=== PATIENT | male | born 1975 | race Caucasian/White ===

== ENCOUNTER 2016-06-25 23:29 | Emergency (ER) | payer OTHER ==
[~2016-06-25] VITALS: Ht 177.8 cm; Wt 137.1 kg
[~2016-06-25 23:29] MED LIST: ADVIL MIGRAINE200 MG PO; AMLODIPINE BESY10 MG PO; ATIVAN0.5 MG PO; ATIVAN1 MG PO; BENADRYL50 MG PO; CIPROFLOXACIN500 M1 PO; CLEOCIN300 MG PO; CLINDAMYCIN HC300 MG PO; DESYREL 150 MG150 MG PO; DOXYCYCLINE MO100 M1 PO; ERGOCALCIF50000 UNIT PO; FIORICET 50-301 EACH PO; FLONASE16 G1 BOTH NARES; FLORASTOR250 MG PO; FUROSEMIDE40 MG PO; GABAPENTIN300 MG PO; GLIPIZIDE10 MG PO; GLUCOPHAGE1000 MG PO; HUMALOG100 UNIT/1 SC; HUMULIN 70100 UNIT/2 SC; HUMULIN N100 UNITS/ SC; HUMULIN R100 UNITS/ SC; HYDROCHLOROTH12.5 M3 PO; HYDROCHLOROTHIA25 MG PO; HYDROCODON-ACE1 EAC7 PO; HYDROCODON-ACE1 EAC9 PO; LABETALOL HCL200 MG PO; LANTUS 10100 UNITS/ SC; LANTUS 3 M100 UNITS1 SC; LASIX40 MG PO; LEVAQUIN750 MG PO; LEVEMIR FL100 UNITS/ SC; LEVEMIR100 UNIT/2; LOPRESSOR25 MG PO; LOPRESSOR50 MG PO; LORAZEPAM0.5 MG PO; METOLAZONE5 MG PO; METOPROLOL TART25 MG PO; NEURONTIN300 MG PO; NIFEDIPINE ER60 MG PO; NORCO 5/3251 TABLET PO; NORVASC10 MG PO; NORVASC5 MG PO; NOVOLIN,HU100 UNITS/ SC; NOVOLIN,HU100 UNITS1 SC; NOVOLOG 10100 UNITS/ SC; NOVOLOG MI100 UNIT/4 SC; NOVOLOG MI100 UNIT/M PO; NOVOLOG PE100 UNITS/ SC; Norvasc PO; OMEPRAZOLE40 M1 PO; PAROXETINE HCL20 MG PO; PRILOSEC40 MG PO; RAMIPRIL1.25 MG PO; RENVELA800 MG PO; ROCEPHIN 2 GM VI2 GM IM; SERTRALINE HCL100 MG PO; SILVADENE20 GM TP; SILVER SULFADIA50 GM TP; TRAMADOL HCL50 MG PO; TRAZODONE HCL150 MG PO; TYLENOL EXTRA500 MG PO; Tessalon Perle PO; ULTRAM50 MG PO; VIBRAMYCIN100 MG PO; VITAMIN D1000 UNIT PO; VITAMIN D250000 UNIT PO; Vicodin,Norco 5/325 PO; XANAX0.5 MG PO; ZESTRIL10 MG PO; ZOLOFT100 MG PO; ZYVOX600 MG PO; ZYVOX600 MG/300 IV; Zestril,Prinivil PO; Zoloft PO
[2016-06-25 23:38] VITALS: BP 177/79
[2016-06-26 00:45] LABS: HEMATOCRIT 34.7 % (38.0-50.0); MCH 29.4 PG (29.0-34.0); MCHC 32.3 G/DL (30.0-36.0); MCV 91.1 FL (86-99); MEAN PLAT.VOLUME 10.1 uM^3 (9.0-12.4); PLATELET COUNT 211 K/uL (156-360); RBC DIS.WIDTH-CV 16.9 % (11.8-14.6); RBC DIS.WIDTH-SD 54.7 % (39-53); RED BLOOD COUNT 3.81 M/uL (4.00-5.50); WHITE BLOOD COUNT 15.9 K/uL (4.1-10.2)
[2016-06-26 00:59] LABS: CHLORIDE 96 mEq/L (99-109); POTASSIUM 5.2 mEq/L (3.7-5.4); SODIUM 134 mEq/L (136-147)
[2016-06-26 01:01] LABS: GLUCOSE 152 mg/dL (70-99)
[2016-06-26 01:02] LABS: ANION GAP 16 MEQ/L (2-14)
[2016-06-26 01:05] LABS: GFR ESTIMATE (CALCULATED) 6 mL/min/
[2016-06-26 01:06] LABS: UREA NITROGEN (BUN) 48 mg/dL (9-23)
== END 2016-06-26 03:19 | disposition left against medical advice (07) ==
LOC: EME 23:29
DX: R05 Cough (principal); R11.10 Vomiting, unspecified; R50.9 Fever, unspecified; R52 Pain, unspecified; R06.89 Other abnormalities of breathing; Z53.21 Procedure and treatment not carried out due to patient leaving prior to being seen by health care provider
CPT/HCPCS: 71020; 80048; 85027; 87502; 93005

== ENCOUNTER 2016-06-30 17:22 | Inpatient (IN) | payer OTHER ==
[~2016-06-30] VITALS: Ht 180.3 cm; Wt 134.7 kg
[2016-06-30 18:16] LABS: HEMATOCRIT 30.4 % (38.0-50.0); MCH 29.6 PG (29.0-34.0); MCHC 32.6 G/DL (30.0-36.0); MEAN PLAT.VOLUME 9.7 uM^3 (9.0-12.4); PLATELET COUNT 265 K/uL (156-360); RBC DIS.WIDTH-CV 16.3 % (11.8-14.6); RBC DIS.WIDTH-SD 52.6 % (39-53); RED BLOOD COUNT 3.34 M/uL (4.00-5.50); WHITE BLOOD COUNT 14.1 K/uL (4.1-10.2)
[2016-06-30 18:21] LABS: EOSINOPHIL (%) 1.4 % (0-5); EOSINOPHIL COUNT 0.2 K/uL (0-0.3); IMMATURE GRANULOCYTE (%) 0.5 % (0.0-0.7); IMMATURE GRANULOCYTE COUNT 0.7 K/uL; LYMPHOCYTE COUNT 0.8 K/uL (1.0-2.8); MONOCYTE (%) 6.5 % (3-12); MONOCYTE COUNT 0.9 K/uL (0-0.8); NEUTROPHIL (%) 85.8 % (45-76); NEUTROPHIL COUNT 12.1 K/uL (1.8-6.4)
[2016-06-30 18:24] LABS: CHLORIDE 95 mEq/L (99-109); POTASSIUM 4.2 mEq/L (3.7-5.4); SODIUM 140 mEq/L (136-147)
[2016-06-30 18:26] LABS: GLUCOSE 125 mg/dL (70-99)
[2016-06-30 18:27] LABS: ANION GAP 14 MEQ/L (2-14)
[2016-06-30 18:31] LABS: UREA NITROGEN (BUN) 24 mg/dL (9-23)
[2016-06-30 18:32] LABS: GFR ESTIMATE (CALCULATED) 13 mL/min/
[2016-06-30 20:29] LABS: INFLUENZA A VIRAL ANTIGEN NEGATIVE; INFLUENZA B VIRAL ANTIGEN NEGATIVE
[2016-06-30] MEDS ORDERED: PROCARDIA XL90 MG PO (20:57)
[2016-06-30] MEDS ORDERED: DOXYCYCLINE HY100 M3 PO (21:04)
[2016-06-30] MEDS ORDERED: CALPHRON667 MG PO (21:07)
[2016-06-30] MEDS ORDERED: VENTOLIN HFA18 GM IH (21:08)
[2016-07-01 01:09] VITALS: BP 137/65
[2016-07-01 02:43] LABS: POINT-OF-CARE METER ID UU13113700
[2016-07-01 04:37] VITALS: BP 142/66
[2016-07-01 07:30] LABS: POINT-OF-CARE METER ID UU13113700
[2016-07-01 07:48] VITALS: BP 165/88
[2016-07-01 12:08] VITALS: BP 146/70
[2016-07-01 13:13] LABS: POINT-OF-CARE METER ID UU13113700
[2016-07-01 17:35] LABS: POINT-OF-CARE METER ID UU13113700
[2016-07-01 20:13] LABS: POINT-OF-CARE METER ID UU13113700
[2016-07-01 21:09] VITALS: BP 163/83
[2016-07-02] VITALS: BP 161/78
[2016-07-02 05:41] LABS: HEMATOCRIT 28.3 % (38.0-50.0); MCH 28.8 PG (29.0-34.0); MCHC 31.8 G/DL (30.0-36.0); MCV 90.7 FL (86-99); PLATELET COUNT 250 K/uL (156-360); RBC DIS.WIDTH-CV 16.5 % (11.8-14.6); RBC DIS.WIDTH-SD 54.4 % (39-53); RED BLOOD COUNT 3.12 M/uL (4.00-5.50); WHITE BLOOD COUNT 11.1 K/uL (4.1-10.2)
[2016-07-02 06:10] LABS: ANION GAP 12 MEQ/L (2-14); CHLORIDE 94 MEQ/L (99-109); GFR ESTIMATE (CALCULATED) 8 mL/min/; POTASSIUM 4.1 MEQ/L (3.7-5.4); SAMPLE HEMOLYSIS CHECK 0; SAMPLE ICTERIC CHECK 0; SAMPLE LIPEMIA CHECK 0; SODIUM 135 MEQ/L (136-147)
[2016-07-02 06:24] LABS: GLUCOSE 89 mg/dL (70-99); UREA NITROGEN (BUN) 50 mg/dL (9-23)
[2016-07-02 06:25] LABS: EOSINOPHIL (%) 2.1 % (0-5); EOSINOPHIL COUNT 0.2 K/uL (0-0.3); IMMATURE GRANULOCYTE COUNT 0.1 K/uL; MONOCYTE (%) 7.4 % (3-12); MONOCYTE COUNT 0.8 K/uL (0-0.8); NEUTROPHIL (%) 80.7 % (45-76)
[2016-07-02 07:51] LABS: POINT-OF-CARE METER ID UU13113831
[2016-07-02 08:38] VITALS: BP 153/83
[2016-07-02 16:03] VITALS: BP 144/70
[2016-07-02 17:42] LABS: POINT-OF-CARE METER ID UU13113700
[2016-07-02 20:10] VITALS: BP 141/76
[2016-07-03 00:02] VITALS: BP 159/78
[2016-07-03 04:05] VITALS: BP 118/61
[2016-07-03 08:45] VITALS: BP 123/71
[2016-07-03 12:32] LABS: POINT-OF-CARE METER ID UU13113700
[2016-07-03 12:43] VITALS: BP 135/81
[2016-07-03] MEDS ORDERED: ZYVOX600 MG/300 IV (14:49)
[2016-07-03] MEDS ORDERED: DOXYCYCLINE HY100 M3 PO (14:49)
[2016-07-03 16:45] VITALS: BP 139/68
== END 2016-07-03 17:31 | disposition home or self-care (01) | DRG 871 ==
LOC: EME 17:22 → 5WEST 07-01 00:06 → EDOF 07-01 00:06 → 5WEST 07-01 00:49
PROVIDERS: Emergency Medicine; Hospitalist
PROC: 5A1D00Z (ICD-10-PCS; principal; 2016-07-02)
DX: A41.9 Sepsis, unspecified organism (principal); L03.115 Cellulitis of right lower limb; N18.6 End stage renal disease; I12.0 Hypertensive chronic kidney disease with stage 5 chronic kidney disease or end stage renal disease; E11.22 Type 2 diabetes mellitus with diabetic chronic kidney disease; E66.01 Morbid (severe) obesity due to excess calories; Z68.41 Body mass index [BMI] 40.0-44.9, adult; L02.415 Cutaneous abscess of right lower limb; B95.62 Methicillin resistant Staphylococcus aureus infection as the cause of diseases classified elsewhere; E11.621 Type 2 diabetes mellitus with foot ulcer; L97.522 Non-pressure chronic ulcer of other part of left foot with fat layer exposed; E11.42 Type 2 diabetes mellitus with diabetic polyneuropathy; G89.4 Chronic pain syndrome; M54.9 Dorsalgia, unspecified; H54.8 Legal blindness, as defined in USA; E78.5 Hyperlipidemia, unspecified; Z99.2 Dependence on renal dialysis; Z91.19 Patient's noncompliance with other medical treatment and regimen; Z79.4 Long term (current) use of insulin; Z88.0 Allergy status to penicillin; Z88.1 Allergy status to other antibiotic agents
CPT/HCPCS: 73718; 80048; 81003; 82948; 83605; 85025; 87040; 87502; 94640; 99202; 99281; 99285; J1644; J1815

== ENCOUNTER → 2016-09-24 | Outpatient (CLI) | payer OTHER ==
[~2016-09-24] MED LIST changes: +CALPHRON667 MG PO; +DOXYCYCLINE HY100 M3 PO; +PROCARDIA XL90 MG PO; +VENTOLIN HFA18 GM IH
== END | disposition home or self-care (01) ==
LOC: RAD 16:14
DX: M51.36 Other intervertebral disc degeneration, lumbar region (principal); M16.6 Other bilateral secondary osteoarthritis of hip
CPT/HCPCS: 72110; 73522

== ENCOUNTER 2016-12-04 17:56 | Emergency (ER) | payer OTHER ==
[~2016-12-04] VITALS: Ht 180.3 cm; Wt 131.2 kg
[2016-12-04 19:15] LABS: EOSINOPHIL (%) 0.7 % (0-5); EOSINOPHIL COUNT 0.1 K/uL (0-0.3); HEMATOCRIT 37.2 % (38.0-50.0); IMMATURE GRANULOCYTE (%) 0.7 % (0.0-0.7); IMMATURE GRANULOCYTE COUNT 0.1 K/uL; INSTRUMENT ABS NEUTROPHIL CT 11.2 K/uL; MCH 30.4 PG (29.0-34.0); MCHC 33.1 G/DL (30.0-36.0); MCV 91.9 FL (86-99); MEAN PLAT.VOLUME 9.3 uM^3 (9.0-12.4); MONOCYTE (%) 6.9 % (3-12); MONOCYTE COUNT 0.9 K/uL (0-0.8); NEUTROPHIL (%) 84.3 % (45-76); NEUTROPHIL COUNT 11.2 K/uL (1.8-6.4); PLATELET COUNT 196 K/uL (156-360); RBC DIS.WIDTH-CV 16.2 % (11.8-14.6); RBC DIS.WIDTH-SD 54.9 % (39-53); RED BLOOD COUNT 4.05 M/uL (4.00-5.50); WHITE BLOOD COUNT 13.3 K/uL (4.1-10.2)
[2016-12-04 19:23] LABS: CHLORIDE 95 mEq/L (99-109); POTASSIUM 4.3 mEq/L (3.7-5.4); SODIUM 135 mEq/L (136-147)
[2016-12-04 19:25] LABS: GLUCOSE 92 mg/dL (70-99)
[2016-12-04 19:26] LABS: ANION GAP 12 MEQ/L (2-14)
[2016-12-04 19:29] LABS: GFR ESTIMATE (CALCULATED) 8 mL/min/
[2016-12-04 19:30] LABS: UREA NITROGEN (BUN) 46 mg/dL (9-23)
[2016-12-04] MEDS ORDERED: VIBRAMYCIN100 MG PO (20:53)
[2016-12-04] MEDS ORDERED: BACTROBAN NASAL1 G1 BOTH NARES (20:54)
[2016-12-04 21:03] VITALS: BP 125/88
== END 2016-12-04 21:10 | disposition home or self-care (01) ==
LOC: EME 17:56
PROVIDERS: Physician Assistant
DX: L03.211 Cellulitis of face (principal); Z86.14 Personal history of Methicillin resistant Staphylococcus aureus infection; K08.89 Other specified disorders of teeth and supporting structures; E11.22 Type 2 diabetes mellitus with diabetic chronic kidney disease; I12.0 Hypertensive chronic kidney disease with stage 5 chronic kidney disease or end stage renal disease; N18.6 End stage renal disease; Z99.2 Dependence on renal dialysis; Z79.4 Long term (current) use of insulin; Z88.0 Allergy status to penicillin
CPT/HCPCS: 80048; 83605; 85025; 87040; 99281; 99284; J1885; J7050

== ENCOUNTER 2017-05-20 07:59 | Day surgery (SDC) | payer OTHER ==
[~2017-05-20] VITALS: Ht 180.3 cm; Wt 157.9 kg
[~2017-05-20 07:59] MED LIST changes: +BACTROBAN NASAL1 G1 BOTH NARES
[2017-05-20 09:15] LABS: POINT-OF-CARE METER ID UU13113696
[2017-05-20 10:12] LABS: METH RESISTANT S AUREUS PCR POSITIVE (NEGATIVE)
[2017-05-20 10:13] LABS: PROBE CHECK PASS
== END 2017-05-20 10:47 | disposition home or self-care (01) ==
LOC: CATH 07:59
PROVIDERS: Surgery
PROC: B31N1ZZ Fluoroscopy of Other Upper Arteries using Low Osmolar Contrast (ICD-10-PCS; principal; 2017-05-20)
DX: T82.41XA Breakdown (mechanical) of vascular dialysis catheter, initial encounter (principal); N18.6 End stage renal disease; Z99.2 Dependence on renal dialysis
CPT/HCPCS: 82948; 87641; C1769; C1894; J1644; J2250; J3010

== ENCOUNTER 2017-05-24 16:35 | Emergency (ER) | payer OTHER ==
[~2017-05-24] VITALS: Ht 180.3 cm; Wt 141.4 kg
[2017-05-24] MEDS ORDERED: BACTROBAN OINTM22 GM TP (18:01)
[2017-05-24] MEDS ORDERED: TRIAMCINOLONE A15 G2 TP (18:01)
[2017-05-24 18:24] VITALS: BP 168/88
== END 2017-05-24 18:25 | disposition home or self-care (01) ==
LOC: EME 16:35
DX: L30.9 Dermatitis, unspecified (principal); L03.012 Cellulitis of left finger; M25.542 Pain in joints of left hand; E11.22 Type 2 diabetes mellitus with diabetic chronic kidney disease; N18.9 Chronic kidney disease, unspecified; Z99.2 Dependence on renal dialysis; Z88.0 Allergy status to penicillin; Z88.1 Allergy status to other antibiotic agents; Z88.2 Allergy status to sulfonamides; Z88.8 Allergy status to other drugs, medicaments and biological substances
CPT/HCPCS: 73140; 99281; 99283

== ENCOUNTER 2017-07-17 14:53 | Emergency (ER) | payer OTHER ==
[~2017-07-17] VITALS: Ht 177.8 cm; Wt 142.2 kg
[~2017-07-17 14:53] MED LIST changes: +BACTROBAN OINTM22 GM TP; +TRIAMCINOLONE A15 G2 TP
[2017-07-17 16:05] LABS: HEMATOCRIT 32.8 % (38.0-50.0); MCH 32.7 PG (29.0-34.0); MCHC 33.5 G/DL (30.0-36.0); MCV 97.6 FL (86-99); PLATELET COUNT 163 K/uL (156-360); RBC DIS.WIDTH-CV 14.2 % (11.8-14.6); RBC DIS.WIDTH-SD 51.2 % (39-53); RED BLOOD COUNT 3.36 M/uL (4.00-5.50); WHITE BLOOD COUNT 8.4 K/uL (4.1-10.2)
[2017-07-17 16:14] LABS: CHLORIDE 93 mEq/L (99-109); POTASSIUM 3.9 mEq/L (3.7-5.4); SODIUM 136 mEq/L (136-147)
[2017-07-17 16:16] LABS: GLUCOSE 116 mg/dL (70-99)
[2017-07-17 16:19] LABS: CREATININE 4.5 mg/dL (0.6-1.3); GFR ESTIMATE (CALCULATED) 15 mL/min/ (58.99-99999)
[2017-07-17 16:20] LABS: UREA NITROGEN (BUN) 18 mg/dL (9-23)
[2017-07-17 21:17] VITALS: BP 150/79
== END 2017-07-17 21:18 | disposition home or self-care (01) ==
LOC: EME 14:53
PROC: 0H9LXZZ Drainage of Left Lower Leg Skin, External Approach (ICD-10-PCS; principal; 2017-07-17)
DX: L02.416 Cutaneous abscess of left lower limb (principal); L03.116 Cellulitis of left lower limb; I12.9 Hypertensive chronic kidney disease with stage 1 through stage 4 chronic kidney disease, or unspecified chronic kidney disease; N18.4 Chronic kidney disease, stage 4 (severe); Z99.2 Dependence on renal dialysis; J45.909 Unspecified asthma, uncomplicated; E11.9 Type 2 diabetes mellitus without complications; Z79.4 Long term (current) use of insulin; Z86.14 Personal history of Methicillin resistant Staphylococcus aureus infection; F41.9 Anxiety disorder, unspecified; F32.9 Major depressive disorder, single episode, unspecified; Z88.0 Allergy status to penicillin; Z88.2 Allergy status to sulfonamides; Z88.6 Allergy status to analgesic agent; Z88.8 Allergy status to other drugs, medicaments and biological substances
CPT/HCPCS: 71046; 80048; 83605; 85027; 87040; 87070; 87075; 87076; 87077; 87147; 87186; 87205; 93005; 99281; 99284

== ENCOUNTER 2017-09-04 06:23 | Day surgery (SDC) | payer OTHER ==
[~2017-09-04] VITALS: Ht 177.8 cm; Wt 136.0 kg
[~2017-09-04 06:23] MED LIST changes: +COREG12.5 M1 PO; +RENAPLEX PO; +SYMBICORT60 INHALAT IH; +ZITHROMAX250 MG PO
[2017-09-04 07:10] LABS: HEMATOCRIT 37.8 % (38.0-50.0); HEMOGLOBIN 12.4 G/DL (12.5-16.6); MCHC 32.8 G/DL (30.0-36.0); MCV 97.7 FL (86-99); PLATELET COUNT 172 K/uL (156-360); RBC DIS.WIDTH-CV 15.2 % (11.8-14.6); RBC DIS.WIDTH-SD 53.7 % (39-53); RED BLOOD COUNT 3.87 M/uL (4.00-5.50); WHITE BLOOD COUNT 8.5 K/uL (4.1-10.2)
[2017-09-04 07:30] VITALS: BP 182/93
[2017-09-04 07:32] LABS: CHLORIDE 99 MEQ/L (99-109); CREATININE 8.9 MG/DL (0.6-1.3); GFR ESTIMATE (CALCULATED) 7 mL/min/ (58.99-99999); GLUCOSE 132 mg/dL (70-99); SODIUM 137 MEQ/L (136-147); UREA NITROGEN (BUN) 43 mg/dL (9-23)
[2017-09-04] MEDS ORDERED: NORCO 5/3251 TABLET PO (10:50)
[2017-09-04 11:20] VITALS: BP 148/74
[2017-09-04 12:05] VITALS: BP 153/90
== END 2017-09-04 12:15 | disposition home or self-care (01) ==
LOC: SDC 06:23
PROVIDERS: Surgery
PROC: 0Y6Q0Z1 Detachment at Left 1st Toe, High, Open Approach (ICD-10-PCS; principal; 2017-09-04)
DX: E11.69 Type 2 diabetes mellitus with other specified complication (principal); M86.672 Other chronic osteomyelitis, left ankle and foot; K21.9 Gastro-esophageal reflux disease without esophagitis; F41.1 Generalized anxiety disorder; I12.0 Hypertensive chronic kidney disease with stage 5 chronic kidney disease or end stage renal disease; E11.22 Type 2 diabetes mellitus with diabetic chronic kidney disease; N18.6 End stage renal disease; Z99.2 Dependence on renal dialysis; Z86.14 Personal history of Methicillin resistant Staphylococcus aureus infection; Z88.0 Allergy status to penicillin; Z88.2 Allergy status to sulfonamides; E66.01 Morbid (severe) obesity due to excess calories; Z68.41 Body mass index [BMI] 40.0-44.9, adult
CPT/HCPCS: 80048; 82948; 85027; 87641; 88305; J1200; J2250; J2405; J3010; J3370; J7040; S0020

== ENCOUNTER 2017-09-23 10:19 | Observation (INO) | payer OTHER ==
[~2017-09-23] VITALS: Ht 177.8 cm; Wt 144.9 kg
[~2017-09-23 10:19] MED LIST changes: -RENAPLEX PO; +RENAPLEX TABLE1 EACH PO
[2017-09-23 10:59] LABS: HEMATOCRIT 34.4 % (38.0-50.0); HEMOGLOBIN 11.9 G/DL (12.5-16.6); MCH 32.9 PG (29.0-34.0); MCHC 34.6 G/DL (30.0-36.0); PLATELET COUNT 134 K/uL (156-360); RBC DIS.WIDTH-CV 14.2 % (11.8-14.6); RBC DIS.WIDTH-SD 49.7 % (39-53); RED BLOOD COUNT 3.62 M/uL (4.00-5.50); WHITE BLOOD COUNT 7.8 K/uL (4.1-10.2)
[2017-09-23 11:04] LABS: INTER. NORMALIZED RATIO 1.1
[2017-09-23 11:11] LABS: CHLORIDE 98 mEq/L (99-109)
[2017-09-23 11:12] LABS: POTASSIUM 4.4 mEq/L (3.7-5.4); SODIUM 138 mEq/L (136-147)
[2017-09-23 11:13] LABS: GLUCOSE 184 mg/dL (70-99)
[2017-09-23 11:17] LABS: CREATININE 6.3 mg/dL (0.6-1.3); GFR ESTIMATE (CALCULATED) 10 mL/min/ (58.99-99999)
[2017-09-23 11:18] LABS: UREA NITROGEN (BUN) 31 mg/dL (9-23)
[2017-09-23 11:21] LABS: TROP-I INTERPRETATION NEGATIVE; TROPONIN-I 0.03 ng/mL (0.0-0.30)
[2017-09-23 13:42] VITALS: BP 180/103
== END 2017-09-23 12:31 | disposition left against medical advice (07) ==
LOC: EME 10:19 → EDOF 12:31 → ENRESERV 12:35 → EDOF 13:00 → CANRESERV 13:07 → ENRESERV 13:07
PROVIDERS: Family Medicine
DX: R07.9 Chest pain, unspecified (principal); R61 Generalized hyperhidrosis; R06.02 Shortness of breath; R42 Dizziness and giddiness; Z82.49 Family history of ischemic heart disease and other diseases of the circulatory system; E11.22 Type 2 diabetes mellitus with diabetic chronic kidney disease; N18.4 Chronic kidney disease, stage 4 (severe); Z99.2 Dependence on renal dialysis; Z79.4 Long term (current) use of insulin; J45.909 Unspecified asthma, uncomplicated; D63.1 Anemia in chronic kidney disease; F41.9 Anxiety disorder, unspecified; Z88.1 Allergy status to other antibiotic agents; Z88.0 Allergy status to penicillin; Z88.2 Allergy status to sulfonamides; Z88.6 Allergy status to analgesic agent; Z88.8 Allergy status to other drugs, medicaments and biological substances
CPT/HCPCS: 71045; 80048; 84484; 85027; 85610; 93005; 99281; 99284; G0378

== ENCOUNTER 2017-10-16 11:04 | Inpatient (IN) | payer OTHER ==
[~2017-10-16] VITALS: Ht 177.8 cm; Wt 146.8 kg
[2017-10-16 12:56] LABS: BASOPHIL (%) 0.2 % (0-1); EOSINOPHIL (%) 0.1 % (0-5); HEMATOCRIT 36.1 % (38.0-50.0); IMMATURE GRANULOCYTE (%) 0.7 % (0.0-0.7); LYMPHOCYTE (%) 5.8 % (15-42); LYMPHOCYTE COUNT 0.9 K/uL (1.0-2.8); MCHC 33.2 G/DL (30.0-36.0); MCV 96.3 FL (86-99); MONOCYTE (%) 9.3 % (3-12); MONOCYTE COUNT 1.5 K/uL (0-0.8); NEUTROPHIL (%) 83.9 % (45-76); NEUTROPHIL COUNT 13.6 K/uL (1.8-6.4); PLATELET COUNT 155 K/uL (156-360); RBC DIS.WIDTH-CV 14.6 % (11.8-14.6); RBC DIS.WIDTH-SD 51.3 % (39-53); RED BLOOD COUNT 3.75 M/uL (4.00-5.50); WHITE BLOOD COUNT 16.2 K/uL (4.1-10.2)
[2017-10-16 13:05] LABS: CHLORIDE 90 mEq/L (99-109); POTASSIUM 5.1 mEq/L (3.7-5.4); SODIUM 135 mEq/L (136-147)
[2017-10-16 13:07] LABS: GLUCOSE 222 mg/dL (70-99)
[2017-10-16 13:11] LABS: CREATININE 11.3 mg/dL (0.6-1.3); GFR ESTIMATE (CALCULATED) 5 mL/min/ (58.99-99999); UREA NITROGEN (BUN) 56 mg/dL (9-23)
[2017-10-16] MEDS ORDERED: AMBIEN5 MG PO (16:06)
[2017-10-16 16:07] LABS: ALBUMIN 3.8 g/dL (3.2-4.8)
[2017-10-16 16:12] LABS: TOTAL BILIRUBIN 0.6 mg/dL (0.0-1.0)
[2017-10-16 16:13] LABS: ALKALINE PHOSPHATASE 61 IU/L (3-129)
[2017-10-16 16:15] LABS: AST (GOT) 11 IU/L (2-34); DIRECT BILIRUBIN 0.3 mg/dL (0.0-0.3)
[2017-10-16 16:16] LABS: ALT (GPT) 16 IU/L (3-49)
[2017-10-16 17:15] VITALS: BP 106/48
[2017-10-16 17:45] LABS: TROP-I INTERPRETATION NEGATIVE; TROPONIN-I 0.03 ng/mL (0.0-0.30)
[2017-10-16 21:10] VITALS: BP 148/66
[2017-10-16 23:58] LABS: TROP-I INTERPRETATION NEGATIVE; TROPONIN-I 0.03 ng/mL (0.0-0.30)
[2017-10-17 00:42] VITALS: BP 165/74
[2017-10-17 04:01] VITALS: BP 138/62
[2017-10-17 05:51] LABS: BASOPHIL (%) 0.2 % (0-1); EOSINOPHIL (%) 0.3 % (0-5); HEMATOCRIT 32.9 % (38.0-50.0); HEMOGLOBIN 10.7 G/DL (12.5-16.6); IMMATURE GRANULOCYTE (%) 0.8 % (0.0-0.7); LYMPHOCYTE (%) 7.1 % (15-42); MCH 31.1 PG (29.0-34.0); MCHC 32.5 G/DL (30.0-36.0); MCV 95.6 FL (86-99); MONOCYTE (%) 9.8 % (3-12); MONOCYTE COUNT 1.3 K/uL (0-0.8); NEUTROPHIL (%) 81.8 % (45-76); NEUTROPHIL COUNT 11.1 K/uL (1.8-6.4); PLATELET COUNT 169 K/uL (156-360); RBC DIS.WIDTH-CV 14.4 % (11.8-14.6); RED BLOOD COUNT 3.44 M/uL (4.00-5.50); WHITE BLOOD COUNT 13.5 K/uL (4.1-10.2)
[2017-10-17 06:20] LABS: CHLORIDE 88 MEQ/L (99-109); CREATININE 12.4 MG/DL (0.6-1.3); GFR ESTIMATE (CALCULATED) 5 mL/min/ (58.99-99999); GLUCOSE 128 mg/dL (70-99); MAGNESIUM 1.9 mg/dl (1.3-2.7); PHOSPHORUS 6.7 mg/dL (2.5-4.9); POTASSIUM 5.3 MEQ/L (3.7-5.4); SODIUM 132 MEQ/L (136-147); UREA NITROGEN (BUN) 66 mg/dL (9-23)
[2017-10-17 07:13] VITALS: BP 162/70
[2017-10-17 12:05] VITALS: BP 117/66
[2017-10-17 16:14] VITALS: BP 128/60
[2017-10-17 22:52] VITALS: BP 154/78
[2017-10-18 06:38] LABS: BASOPHIL (%) 0.3 % (0-1); EOSINOPHIL (%) 1.6 % (0-5); EOSINOPHIL COUNT 0.2 K/uL (0-0.3); HEMATOCRIT 32.7 % (38.0-50.0); HEMOGLOBIN 10.6 G/DL (12.5-16.6); IMMATURE GRANULOCYTE (%) 1.1 % (0.0-0.7); LYMPHOCYTE (%) 8.5 % (15-42); LYMPHOCYTE COUNT 0.8 K/uL (1.0-2.8); MCH 31.3 PG (29.0-34.0); MCHC 32.4 G/DL (30.0-36.0); MCV 96.5 FL (86-99); MONOCYTE (%) 11.9 % (3-12); MONOCYTE COUNT 1.1 K/uL (0-0.8); NEUTROPHIL (%) 76.6 % (45-76); PLATELET COUNT 183 K/uL (156-360); RBC DIS.WIDTH-CV 14.2 % (11.8-14.6); RBC DIS.WIDTH-SD 50.2 % (39-53); RED BLOOD COUNT 3.39 M/uL (4.00-5.50); WHITE BLOOD COUNT 9.1 K/uL (4.1-10.2)
[2017-10-18 07:08] LABS: CHLORIDE 91 MEQ/L (99-109); GFR ESTIMATE (CALCULATED) 7 mL/min/ (58.99-99999); GLUCOSE 112 mg/dL (70-99); POTASSIUM 5.1 MEQ/L (3.7-5.4); SODIUM 131 MEQ/L (136-147); UREA NITROGEN (BUN) 49 mg/dL (9-23)
[2017-10-18 07:10] LABS: CREATININE 9.2 MG/DL (0.6-1.3)
[2017-10-18 07:16] VITALS: BP 167/86
[2017-10-18 11:38] VITALS: BP 165/85
[2017-10-18 16:09] VITALS: BP 174/82
[2017-10-19] VITALS: BP 163/83
[2017-10-19 07:26] VITALS: BP 159/86
[2017-10-19 08:00] LABS: HEMATOCRIT 30.7 % (38.0-50.0); HEMOGLOBIN 10.2 G/DL (12.5-16.6); MCH 31.3 PG (29.0-34.0); MCHC 33.2 G/DL (30.0-36.0); MCV 94.2 FL (86-99); PLATELET COUNT 195 K/uL (156-360); RBC DIS.WIDTH-CV 13.8 % (11.8-14.6); RBC DIS.WIDTH-SD 47.3 % (39-53); RED BLOOD COUNT 3.26 M/uL (4.00-5.50); WHITE BLOOD COUNT 7.3 K/uL (4.1-10.2)
[2017-10-19 08:16] LABS: ALBUMIN 3.2 G/DL (3.2-4.8); CHLORIDE 90 MEQ/L (99-109); GFR ESTIMATE (CALCULATED) 6 mL/min/ (58.99-99999); GLUCOSE 152 mg/dL (70-99); PHOSPHORUS 7.5 mg/dL (2.5-4.9); POTASSIUM 4.9 MEQ/L (3.7-5.4); SODIUM 129 MEQ/L (136-147); UREA NITROGEN (BUN) 66 mg/dL (9-23)
[2017-10-19 08:17] LABS: CREATININE 10.9 MG/DL (0.6-1.3)
[2017-10-19 10:00] VITALS: BP 139/73
[2017-10-19 11:42] VITALS: BP 156/74
[2017-10-19 12:08] LABS: HEPATITIS B SURFACE ANTIGEN Nonreactive
[2017-10-19] MEDS ORDERED: VANCOMYCIN HCL1 GM IV (14:53)
[2017-10-19] MEDS ORDERED: BENADRYL25 MG PO (15:02)
[2017-10-19 16:32] VITALS: BP 122/58
== END 2017-10-19 19:58 | disposition home or self-care (01) | DRG 871 ==
LOC: EME 11:04 → 5EAST 14:12 → ENRESERV 14:19 → 5EAST 14:42 → ENRESERV 14:42 → 5EAST 14:42 → EDOF 14:53 → ENRESERV 15:33 → 5EAST 17:31
PROVIDERS: Hospitalist; Internal Medicine; Internal Medicine Nephrology
DX: A41.9 Sepsis, unspecified organism (principal); L03.116 Cellulitis of left lower limb; L97.529 Non-pressure chronic ulcer of other part of left foot with unspecified severity; M86.9 Osteomyelitis, unspecified; J06.9 Acute upper respiratory infection, unspecified; N18.6 End stage renal disease; E11.40 Type 2 diabetes mellitus with diabetic neuropathy, unspecified; L03.311 Cellulitis of abdominal wall; E11.21 Type 2 diabetes mellitus with diabetic nephropathy; D63.1 Anemia in chronic kidney disease; E11.51 Type 2 diabetes mellitus with diabetic peripheral angiopathy without gangrene; I12.0 Hypertensive chronic kidney disease with stage 5 chronic kidney disease or end stage renal disease; E11.22 Type 2 diabetes mellitus with diabetic chronic kidney disease; E11.69 Type 2 diabetes mellitus with other specified complication; E11.65 Type 2 diabetes mellitus with hyperglycemia; A08.4 Viral intestinal infection, unspecified; E11.621 Type 2 diabetes mellitus with foot ulcer; I89.0 Lymphedema, not elsewhere classified; K21.9 Gastro-esophageal reflux disease without esophagitis; H54.8 Legal blindness, as defined in USA; F32.9 Major depressive disorder, single episode, unspecified; F41.9 Anxiety disorder, unspecified; B95.62 Methicillin resistant Staphylococcus aureus infection as the cause of diseases classified elsewhere; E66.01 Morbid (severe) obesity due to excess calories; J45.909 Unspecified asthma, uncomplicated; Z98.1 Arthrodesis status; Z99.2 Dependence on renal dialysis; Z93.0 Tracheostomy status; Z89.421 Acquired absence of other right toe(s); Z89.412 Acquired absence of left great toe; Z83.3 Family history of diabetes mellitus; Z89.411 Acquired absence of right great toe; Z80.9 Family history of malignant neoplasm, unspecified; Z82.5 Family history of asthma and other chronic lower respiratory diseases; Z82.49 Family history of ischemic heart disease and other diseases of the circulatory system; Z87.820 Personal history of traumatic brain injury; Z79.4 Long term (current) use of insulin
CPT/HCPCS: 71046; 71250; 74176; 80048; 80069; 80076; 81003; 82948; 83605; 83735; 84100; 84484; 85025; 85027; 87040; 87070; 87075; 87077; 87147; 87186; 87205; 87340; 99281; 99285; J0456; J0696; J0780; J1644; J1815; J1940; J2020; J2405; J3370; J7040; Q0169; S0028

== ENCOUNTER 2017-11-13 11:46 | Emergency (ER) | payer OTHER ==
[~2017-11-13] VITALS: Ht 177.8 cm; Wt 142.7 kg
[~2017-11-13 11:46] MED LIST changes: +AMBIEN5 MG PO; +BENADRYL25 MG PO; +VANCOMYCIN HCL1 GM IV
[2017-11-13 12:28] LABS: BASOPHIL (%) 0.5 % (0-1); EOSINOPHIL (%) 2.6 % (0-5); EOSINOPHIL COUNT 0.2 K/uL (0-0.3); HEMATOCRIT 35.1 % (38.0-50.0); HEMOGLOBIN 12.2 G/DL (12.5-16.6); IMMATURE GRANULOCYTE (%) 1.3 % (0.0-0.7); LYMPHOCYTE (%) 13.7 % (15-42); LYMPHOCYTE COUNT 1.2 K/uL (1.0-2.8); MCH 32.4 PG (29.0-34.0); MCHC 34.8 G/DL (30.0-36.0); MCV 93.4 FL (86-99); MONOCYTE (%) 8.5 % (3-12); MONOCYTE COUNT 0.7 K/uL (0-0.8); NEUTROPHIL (%) 73.4 % (45-76); NEUTROPHIL COUNT 6.2 K/uL (1.8-6.4); PLATELET COUNT 157 K/uL (156-360); RBC DIS.WIDTH-CV 14.7 % (11.8-14.6); RBC DIS.WIDTH-SD 49.3 % (39-53); RED BLOOD COUNT 3.76 M/uL (4.00-5.50); WHITE BLOOD COUNT 8.5 K/uL (4.1-10.2)
[2017-11-13 12:51] LABS: ALBUMIN 3.9 G/DL (3.2-4.8); ALKALINE PHOSPHATASE 73 IU/L (3-129); ALT (GPT) 18 IU/L (3-49); AST (GOT) 15 IU/L (2-34); CHLORIDE 95 MEQ/L (99-109); CREATININE 4.7 MG/DL (0.6-1.3); GFR ESTIMATE (CALCULATED) 15 mL/min/ (58.99-99999); GLUCOSE 145 mg/dL (70-99); MAGNESIUM 1.8 mg/dl (1.3-2.7); POTASSIUM 3.9 MEQ/L (3.7-5.4); SODIUM 135 MEQ/L (136-147); TOTAL BILIRUBIN 0.5 MG/DL (0.0-1.0); TOTAL PROTEIN 7.7 G/DL (6.4-8.3); UREA NITROGEN (BUN) 25 mg/dL (9-23)
[2017-11-13 12:52] LABS: TROP-I INTERPRETATION NEGATIVE; TROPONIN-I 0.01 ng/mL (0.0-0.30)
[2017-11-13 13:19] LABS: CK-MB 17.7 ng/mL (0.0-4.9)
[2017-11-13 13:35] LABS: CKMB RELATIVE INDEX 7.6 (0.0-3.9); CREATINE KINASE 233 IU/L (1-294); TOTAL CK 233 IU/L (1-294)
[2017-11-13 14:41] VITALS: BP 110/72
== END 2017-11-13 14:41 | disposition left against medical advice (07) ==
LOC: EME 11:46
PROVIDERS: Emergency Medicine
DX: R07.9 Chest pain, unspecified (principal); G45.9 Transient cerebral ischemic attack, unspecified; N18.6 End stage renal disease; Z99.2 Dependence on renal dialysis; R94.31 Abnormal electrocardiogram [ECG] [EKG]; E11.22 Type 2 diabetes mellitus with diabetic chronic kidney disease; J45.909 Unspecified asthma, uncomplicated; F41.9 Anxiety disorder, unspecified; Z79.891 Long term (current) use of opiate analgesic; Z79.4 Long term (current) use of insulin; Z88.1 Allergy status to other antibiotic agents; Z88.2 Allergy status to sulfonamides; Z88.0 Allergy status to penicillin; Z88.6 Allergy status to analgesic agent; Z88.8 Allergy status to other drugs, medicaments and biological substances
CPT/HCPCS: 70450; 80053; 82550; 82553; 83735; 84484; 85025; 93005; 99281; 99284